=== PATIENT | male | born 1955 | race Caucasian/White ===

== ENCOUNTER → 2016-06-04 | Outpatient (CLI) | payer OTHER ==
[~2016-06-04] MED LIST: HYDROCODON-ACE1 EAC7 PO
== END | disposition home or self-care (01) ==
LOC: NUC 08:42
DX: E21.3 Hyperparathyroidism, unspecified (principal); E83.52 Hypercalcemia; N20.0 Calculus of kidney
CPT/HCPCS: 78072; A9500; A9512